=== PATIENT | female | born 1985 | race Two or more races ===

== ENCOUNTER 2021-02-19 16:48 | Emergency (ER) | payer MEDICAID ==
[2021-02-19] MEDS ORDERED: Sodium Chloride 0.9% 1,000 ML IV ONE (17:19)
[2021-02-19] MEDS ORDERED: Sodium Chloride 0.9% 10 ML Syringe FLUSH PRN (17:19)
[2021-02-19] MEDS ORDERED: Metoclopramide 10 MG/2 ML SDV IVPUSH ONE (17:19)
[2021-02-19] MEDS ORDERED: Ketorolac 30 MG/ML SDV IVPUSH ONE (17:22)
--- NOTE | 2021-02-19 18:40 | EDM.PDOC ---
ED HPI GENERAL MEDICAL PROBLEM - General Chief Complaint: Gastrointestinal Problem Stated Complaint: VOMITING Time Seen by Provider: 02/19/21 16:56 Source of Information: Reports: Patient, Family History Limitations: Reports: No Limitations, Language Barrier - History of Present Illness INITIAL COMMENTS - FREE TEXT/NARRATIVE: 36-year-old female presents the emergency department today with complaints of nausea. The patient speaks very broken Montene[place]in however her son is in the room to translate. Patient states she was seen in [facility] yesterday with complaints of nausea and vomiting. Of note, the patient is traveling to [place]. Patient states that she woke yesterday morning with a headache. She states she has a history of migraine headaches. She states she had nausea and vomiting. Vomited approximately 4 times yesterday. She was seen in the emergency department in [place] yesterday and given IV fluids and Zofran. She states she was then discharged with a prescription for Zofran. However states that traveling today she still has a headache and has been very nauseated however has been able to eat. She denies any recent fever, diarrhea or abdomin al pain. She states she has had the chills past couple of days and has a history of constipation. She did have a bowel movement daily however she states she had abdominal pain while having the bowel movement. She does not currently have any abdominal pain. She does not take any prescription medications and carries a past medical history of chronic anemia. She does admit to having photophobia and phonophobia. She denies any blurred vision or double vision. 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 ED EXAM, GI/ABD - Physical Exam Exam: See Below Exam Limited By: No Limitations General Appearance: Alert, WD/WN, No Apparent Distress Eyes: Bilateral: EOMI Ears: Normal External Exam, Hearing Grossly Normal Nose: Normal Inspection Throat/Mouth: Normal Inspection, Normal Lips, Normal Voice, No Airway Compromise Head: Atraumatic, Normocephalic Neck: Normal Inspection, Supple Respiratory/Chest: No Respiratory Distress, Lungs Clear, Normal Breath Sounds, No Accessory Muscle Use, Chest Non-Tender Cardiovascular: Normal Peripheral Pulses, Regular Rate, Rhythm, No Edema, No Murmur GI/Abdominal Exam: Normal Bowel Sounds, Soft, Non-Tender, No Distention (Female) Exam: Deferred Rectal (Female) Exam: Deferred Back Exam: Normal Inspection Extremities: Normal Inspection Neurological: Alert, Oriented, CN II-XII Intact, Normal Cognition Psychiatric: Normal Affect, Normal Mood Skin Exam: Warm, Dry, Intact, Normal Color, No Rash Lymphatic: No Adenopathy Course - Vital Signs Text/Narrative:: Upon assessment, the patient does complain of frontal headache pain with photophobia and phonophobia. She denies any blurred vision or double vision. She states she is nauseated however has not vomited today. She vomited approximately 4 times yesterday. Complained of some abdominal pain yesterday while having her bowel movement however has not had any today. She also admits to having chills over the course of the past couple of days. Of note, she states they are traveling to [place] and driving in the car does make her feel n auseated and dizzy. I have ordered labs to include a CBC, CMP, CRP and magnesium level. We will treat her for migraine headache to include a liter of normal saline, Reglan, and Toradol. I have also ordered a flatplate of the abdomen pending negative results of a urine test. Last Recorded V/S: Last Vital Signs Temp 98.0 F 02/19/21 16:55 Pulse 79 02/19/21 16:55 Resp 18 02/19/21 16:55 BP 109/64 02/19/21 16:55 Pulse Ox 100 02/19/21 16:55 - Orders/Labs/Meds Orders: Active Orders 24 hr Category Date Time Status Abdomen 1V Flat [CR] Stat Exams 02/19/21 17:19 Taken Sodium Chloride 0.9% [Saline Flush] Med 02/19/21 17:19 Active 10 ml FLUSH ASDIRECTED PRN Saline Lock Insert [OM.PC] Stat Oth 02/19/21 17:19 Ordered Medication Orders Sodium Chloride (Sodium Chloride 0.9% 10 Ml Syringe) 10 ml FLUSH ASDIRECTED PRN PRN Reason: Keep Vein Open Last Admin: 02/19/21 17:40 Dose: 10 ml Documented by: RAVIN Labs: Laboratory Tests 02/19/21 02/19/21 02/19/21 Range/Units 17:39 17:39 17:39 WBC 8.01 (3.98-10.04) K/mm3 RBC 4.90 (3.98-5.22) M/mm3 Hgb 9.6 L (11.2-15.7) gm/dl Hct 32.0 L (34.1-44.9) % MCV 65.3 L (79.4-94.8) fl MCH 19.6 L (25.6-32.2) pg MCHC 30.0 L (32.2-35.5) g/dl RDW Std Deviation 45.1 (36.4-46.3) fL Plt Count 299 (182-369) K/mm3 MPV 10.8 (9.4-12.3) fl Neut % (Auto) 70.0 (34.0-71.1) % Lymph % (Auto) 20.6 (19.3-51.7) % [place] % (Auto) 8.2 (4.7-12.5) % Eos % (Auto) 0.6 L (0.7-5.8) Baso % (Auto) 0.5 (0.1-1.2) % Neut # (Auto) 5.60 (1.56-6.13) K/mm3 Lymph # (Auto) 1.65 (1.18-3.74) K/mm3 [place] # (Auto) 0.66 H (0.24-0.36) K/mm3 Eos # (Auto) 0.05 (0.04-0.36) K/mm3 Baso # (Auto) 0.04 (0.01-0.08) K/mm3 Manual Slide Review Abnormal smear Sodium 145 (136-145) mEq/L Potassium 3.9 (3.5-5.1) mEq/L Chloride 108 H (98-107) mEq/L Carbon Dioxide 26 (21-32) mEq/L Anion Gap 14.9 (5-15) BUN 12 (7-18) mg/dL Creatinine 0.9 (0.55-1.02) mg/dL Est Cr Clr Drug Dosing 76.26 mL/min Estimated GFR (MDRD) > 60 (>60) mL/min BUN/Creatinine Ratio 13.3 L (14-18) Glucose 109 H (70-99) mg/dL Calcium 8.6 (8.5-10.1) mg/dL Magnesium 2.2 (1.8-2.4) mg/dL Total Bilirubin 0.2 (0.2-1.0) mg/dL AST 16 (15-37) U/L ALT 24 (14-59) U/L Alkaline Phosphatase 61 (46-116) U/L C-Reactive Protein <0.2 (<1.0) mg/dL Total Protein 7.8 (6.4-8.2) g/dl Albumin 3.6 (3.4-5.0) g/dl Globulin 4.2 gm/dL Albumin/Globulin Ratio 0.9 L (1-2) Urine Color Yellow (Yellow) Urine Appearance Cloudy H (Clear) Urine pH 8.5 H (5.0-8.0) Ur Specific Commerce 1.020 (1.005-1.030) Urine Protein Negative (Negative) Urine Glucose (UA) Negative (Negative) Urine Ketones Negative (Negative) Urine Occult Blood Negative (Negative) Urine Nitrite Negative (Negative) Urine Bilirubin Negative (Negative) Urine Urobilinogen 0.2 (0.2-1.0) Ur Leukocyte Esterase Negative (Negative) Urine HCG, Qual (NEGATIVE) 02/19/21 Range/Units 17:39 WBC (3.98-10.04) K/mm3 RBC (3.98-5.22) M/mm3 Hgb (11.2-15.7) gm/dl Hct (34.1-44.9) % MCV (79.4-94.8) fl MCH (25.6-32.2) pg MCHC (32.2-35.5) g/dl RDW Std Deviation (36.4-46.3) fL Plt Count (182-369) K/mm3 MPV (9.4-12.3) fl Neut % (Auto) (34.0-71.1) % Lymph % (Auto) (19.3-51.7) % [place] % (Auto) (4.7-12.5) % Eos % (Auto) (0.7-5.8) Baso % (Auto) (0.1-1.2) % Neut # (Auto) (1.56-6.13) K/mm3 Lymph # (Auto) (1.18-3.74) K/mm3 [place] # (Auto) (0.24-0.36) K/mm3 Eos # (Auto) (0.04-0.36) K/mm3 Baso # (Auto) (0.01-0.08) K/mm3 Manual Slide Review Sodium (136-145) mEq/L Potassium (3.5-5.1) mEq/L Chloride (98-107) mEq/L Carbon Dioxide (21-32) mEq/L Anion Gap (5-15) BUN (7-18) mg/dL Creatinine (0.55-1.02) mg/dL Est Cr Clr Drug Dosing mL/min Estimated GFR (MDRD) (>60) mL/min BUN/Creatinine Ratio (14-18) Glucose (70-99) mg/dL Calcium (8.5-10.1) mg/dL Magnesium (1.8-2.4) mg/dL Total Bilirubin (0.2-1.0) mg/dL AST (15-37) U/L ALT (14-59) U/L Alkaline Phosphatase (46-116) U/L C-Reactive Protein (<1.0) mg/dL Total Protein (6.4-8.2) g/dl Albumin (3.4-5.0) g/dl Globulin gm/dL Albumin/Globulin Ratio (1-2) Urine Color (Yellow) Urine Appearance (Clear) Urine pH (5.0-8.0) Ur Specific Commerce (1.005-1.030) Urine Protein (Negative) Urine Glucose (UA) (Negative) Urine Ketones (Negative) Urine Occult Blood (Negative) Urine Nitrite (Negative) Urine Bilirubin (Negative) Urine Urobilinogen (0.2-1.0) Ur Leukocyte Esterase (Negative) Urine HCG, Qual Negative (NEGATIVE) Meds: Medications Generic Name Dose Route Start Last Admin Trade Name Freq PRN Reason Stop Dose Admin Sodium Chloride 10 ml 02/19/21 17:19 02/19/21 17:40 Sodium Chloride 0.9% 10 Ml Syringe FLUSH 10 ml ASDIRECTED PRN Administration Keep Vein Open Discontinued Medications Generic Name Dose Route Start Last Admin Trade Name Freq PRN Reason Stop Dose Admin Sodium Chloride 1,000 mls @ 999 mls/hr 02/19/21 17:19 02/19/21 17:36 Normal Saline IV 02/19/21 18:19 999 mls/hr ONETIME ONE Administration Ketorolac Tromethamine 30 mg 02/19/21 17:22 02/19/21 17:36 Ketorolac 30 Mg/Ml Sdv IVPUSH 02/19/21 17:23 30 mg ONETIME ONE Administration Metoclopramide HCl 5 mg 02/19/21 17:19 02/19/21 17:36 Metoclopramide 10 Mg/2 Ml Sdv IVPUSH 02/19/21 17:20 5 mg ONETIME ONE Administration - Re-Assessments/Exams Free Text/Narrative Re-Assessment/Exam: 02/19/21 18:42 Hematology reveals a WBC of 8.01, hemoglobin 9.6, hematocrit 32.0, MCV 65.3, platelet count 299 Chemistry reveals a sodium of 145, potassium 3.9, chloride 108, carbon dioxide 26, anion gap 14.9, BUN 12, creatinine 0.9, glucose 109, magnesium 2.2, AST 16, ALT 24, alk phos 61, C-reactive protein less than 0.2 Urinalysis is unremarkable, urine HCG is negative. I have ordered a flatplate of the abdomen to be completed on this patient. 02/19/21 18:43 Nursing staff reports to me that the patient states that her headache and nausea have completely resolved. Flatplate of the abdomen was reviewed by myself and Dr. Duvall. Nothing acute is appreciated. Formal radiologist report is pending. Patient will be discharged home. Departure - Departure Time of Disposition: 18:48 Disposition: Home, Self-Care 01 Condition: Good Clinical Impression: Migraine Qualifiers: Migraine type: without aura Status migrainosus presence: without status migrainosus Intractability: not intractable Qualified Code(s): G43.009 - Migraine without aura, not intractable, without status migrainosus Nausea & vomiting Qualifiers: Vomiting type: unspecified Vomiting Intractability: intractable Qualified Code(s): R11.2 - Nausea with vomiting, unspecified - Discharge Information Referrals: PCP,Not In Area [Primary Care Provider] - Additional Instructions: You were seen in the emergency department today with complaints of migraine headache, nausea and vomiting. Labs were completed as well as an x-ray of the abdomen. You were given IV fluids and medications to abort the migraine headache and this did seem to work. Labs were essentially unremarkable however hemoglobin was low at 9.6 however you state that you have chronic anemia. All other labs were essentially within normal limits. We were able to abort your migraine headache. You also mentioned that you have motion sickness while traveling in the car. Recommend that you sit in the front seat and not read or look at your phone. You need to be looking ahead at the front window. Should you develop motion sickness, recommend that you take Dramamine. This can be obtained at any gas station or pharmacy. If this does not help abort the nausea then I would try the Zofran that you were prescribed yesterday. Also recommend that 1 to get to your destination that you obtain a primary care provider to further evaluate your anemia as this should be treated. Sepsis Event Note (ED) - Evaluation Sepsis Screening Result: No Definite Risk - Focused Exam Vital Signs: Vital Signs Temp Pulse Resp BP Pulse Ox 02/19/21 16:55 98.0 F 79 18 109/64 100 - My Orders Last 24 Hours: My Active Orders 02/19/21 17:19 Abdomen 1V Flat [CR] Stat Sodium Chloride 0.9% [Saline Flush] 10 ml FLUSH ASDIRECTED PRN Saline Lock Insert [OM.PC] Stat - Assessment/Plan Last 24 Hours: My Active Orders 02/19/21 17:19 Abdomen 1V Flat [CR] Stat Sodium Chloride 0.9% [Saline Flush] 10 ml FLUSH ASDIRECTED PRN Saline Lock Insert [OM.PC] Stat
--- NOTE | 2021-02-19 19:30 | CR ---
Abdomen: Supine view of the abdomen was obtained. Comparison: No prior abdominal imaging is available. Bowel gas pattern appears normal. Surgical clips are seen within the pelvis. Bony structures appear within normal limits for the patient's age. No abnormal calcifications or soft tissue abnormality is appreciated. Impression: 1. Nothing acute is seen on supine abdominal x-ray. Diagnostic code #2
== END 2021-02-19 18:57 | disposition home or self-care (01) ==
LOC: JD.ED 16:48
DX: G43.009 Migraine without aura, not intractable, without status migrainosus (principal)
CPT/HCPCS: 36415; 74018; 80053; 81003; 81025; 83735; 85025; 86140; 96374; 96375; 99284; J1885; J2765; J7030